=== PATIENT | male | born 1950 | race Hispanic/Latino ===

== ENCOUNTER 2018-10-05 11:52 | Emergency (ER) | payer OTHER, MEDICARE ==
[~2018-10-05] VITALS: Ht 172.7 cm; Wt 84.8 kg
[~2018-10-05 11:52] MED LIST: BACTRIM DS TAB1 EACH PO; CIPRO500 MG PO; LEVAQUIN500 MG PO; METFORMIN HCL500 M2 PO; TYLENOL # 31 EA PO
[2018-10-05] MEDS ORDERED: AZITHROMYCIN 500MG/NS 250 ML 250 ML IV STA (12:05)
[2018-10-05] MEDS ORDERED: CEFTRIAXONE SOD 1 GM/NS 50 ML 50 ML IV STA (12:05)
[2018-10-05] MEDS ORDERED: SODIUM CHLORIDE 0.9% 1000ML 1,000 ML IV STA (12:05)
[2018-10-05 12:26] LABS: BASOPHILS % 0.4 % (0.0-1.0); EOSINOPHILS # (AUTO) 0.3 (0.0-0.4); EOSINOPHILS % 4.1 % (0.0-6.0); HEMATOCRIT 47.5 % (38.2-49.6); HEMOGLOBIN 15.3 g/dL (14.0-18.0); LYMPHOCYTES # (AUTO) 2.1 (1.0-3.2); LYMPHOCYTES % 27.3 % (18.0-39.1); MEAN CORPUSCULAR HEMOGLOBIN 29.7 pg (28-32); MEAN CORPUSCULAR HGB CONC 32.2 g/dL (31-35); MEAN CORPUSCULAR VOLUME 92.1 fL (81-99); MONOCYTES # (AUTO) 0.6 (0.2-0.8); MONOCYTES % 7.3 % (4.4-11.3); NEUTROPHILS # (AUTO) 4.8 (2.1-6.9); NEUTROPHILS % 60.6 % (38.7-80.0); PLATELET COUNT 160 x10e3/uL (140-360); RED BLOOD COUNT 5.16 x10e6/uL (4.3-5.7); RED CELL DISTRIBUTION WIDTH 12.8 % (11.7-14.4)
[2018-10-05 12:34] LABS: INR 0.86; PROTHROMBIN TIME 12.2 seconds (11.9-14.5)
[2018-10-05 12:35] LABS: PARTIAL THROMBOPLASTIN TIME 26.8 seconds (23.8-35.5)
[2018-10-05 12:45] LABS: ALANINE AMINOTRANSFERASE 24 IU/L (0-55); ALBUMIN 3.9 g/dL (3.5-5.0); ALBUMIN/GLOBULIN RATIO 1.2 (0.8-2.0); ALKALINE PHOSPHATASE 97 IU/L (40-150); BLOOD UREA NITROGEN 22 mg/dL (7-26); BUN/CREATININE RATIO 25 (6-25); CALCIUM 9.3 mg/dL (8.4-10.2); CARBON DIOXIDE 21 mmol/L (22-29); CHLORIDE 105 mmol/L (98-107); CREATINE KINASE 217 IU/L (30-200); CREATININE, SERUM 0.89 mg/dL (0.72-1.25); EST GLOMERULAR FILTRATION RATE > 60 ML/MIN (60-); GLUCOSE 117 mg/dL (74-118); MAGNESIUM 2.3 MG/DL (1.3-2.1); SODIUM 135 mmol/L (136-145)
--- NOTE | 2018-10-05 12:59 | Diagnostic Imaging Report ---
EXAMINATION: CHEST 2 VIEWS INDICATION: Syncope. COMPARISON: None FINDINGS: TUBES and LINES: None. LUNGS: Lungs are moderately inflated. Emphysematous changes of the lungs. There is no evidence of pneumonia or pulmonary edema. PLEURA: No pleural effusion or pneumothorax. HEART AND MEDIASTINUM: The cardiomediastinal silhouette is unremarkable. BONES AND SOFT TISSUES: No acute osseous abnormality. UPPER ABDOMEN: No free air under the diaphragm. IMPRESSION: No acute radiographic abnormality. Emphysematous changes of the lungs. Signed by: Dr. Shakira Patton MD on 10/05/2018 12:56 PM
[2018-10-05] MEDS ORDERED: METHYLPREDNISOLONE SOD SUCC 125 MG/2ML VIAL IV ONE (13:00)
[2018-10-05 13:05] LABS: THYROID STIMULATING HORMONE 1.744 uIU/mL (0.350-4.940)
[2018-10-05] MEDS ORDERED: PREDNISONE20 MG PO (13:22)
[2018-10-05] MEDS ORDERED: PROAIR HFA INH8.5 GM INH (13:22)
== END 2018-10-05 15:15 | disposition home or self-care (01) ==
LOC: ER 11:52
DX: R50.9 Fever, unspecified (principal); R05 Cough; R42 Dizziness and giddiness; J44.9 Chronic obstructive pulmonary disease, unspecified
CPT/HCPCS: 36415; 71046; 80053; 82550; 82553; 83735; 83880; 84443; 84484; 85025; 85610; 85730; 99284; J0456; J0696; J2930; J7030